=== PATIENT | female | born 1955 | race Two or more races ===

== ENCOUNTER → 2018-03-25 16:29 | Outpatient (CLI) | payer OTHER, SELFPAY ==
[2018-04-03 08:21] LABS: HPV HC, High Risk Negative (Negative); HPV Reflexed? YES, CHARGE PATIENT
== END ==
PROVIDERS: Visit Provider Obstetrics & Gynecology
DX: Z12.4 Encounter for screening for malignant neoplasm of cervix (principal)
CPT/HCPCS: 87624; 88175; G0145